=== PATIENT | female | born 2000 | race Caucasian/White ===

== ENCOUNTER 2022-02-05 10:06 | Emergency (ER) | payer OTHER ==
[~2022-02-05] VITALS: Ht 175.3 cm; Wt 59.0 kg
[2022-02-05] MEDS ORDERED: LOESTRIN1 EAC1 PO (11:25)
== END 2022-02-05 18:24 | disposition home or self-care (01) ==
LOC: ED 10:06
DX: K52.9 Noninfective gastroenteritis and colitis, unspecified (principal); Z79.899 Other long term (current) drug therapy; Z20.822 Contact with and (suspected) exposure to COVID-19
CPT/HCPCS: 36415; 74177; 76830; 76856; 80053; 81001; 84703; 85025; 87502; 96361; 96375; 99284-25; C9803; J1885; J2405; J7030; Q9967; U0003